=== PATIENT | male | born 1950 | race Caucasian/White ===

== ENCOUNTER 2016-07-27 08:09 | Inpatient (IN) | payer BC ==
--- NOTE | 2016-05-03 13:41 | NUR ---
PMH, allergies, meds reviewed and documented. Preop instructions given including handouts of medications to stop before surgery, shower instructions with Hibiclens soap, letter from Dr Navarro, ortho consent to read, Surgical Services pamphlet and my contact information. Encouraged to call if he has any questions. does have MS and is using a walker and muscle stimulator to assist with ambulation today. They are hoping her strength will be improved by July when the surgery is scheduled for but if not, they do have adult children who live close by and can help with care if needed.
--- NOTE | 2016-07-13 14:00 | NUR ---
JOINT REPLACEMENT PREOP CLASS PATIENT ATTENDED JOINT REPLACEMENT PREOP CLASS. CASE MANAGEMENT CONTACT INFORMATION PROVIDED. EDUCATION WAS PROVIDED REGARDING WHAT TO EXPECT BEFORE, DURING AND AFTER SURGERY. INCLUDING: OVERVIEW OF ANATOMY AND PHYSIOLOGY HOSPITAL TREATMENT SCHEDULE THERAPY DEMONSTRATION CASE MANAGEMENT RESPONSIBILITIES DISCHARGE PLANNING EQUIPMENT NEEDS JOINT REPLACEMENT WORKBOOK ANTI-COAGULATION SURGERY STRONG NUTRITIONAL PROTOCOL DISCHARGE IN[place] [facility] [place], WITH INSTRUCTIONS CJR AND PREOP SURVERY PREOP BATHING- CHG GIVEN ALL PATIENT'S QUESTIONS ANSWERED TO THEIR SATISFACTION. PATIENTS AND COACHES ENCOURAGED TO CALL WITH ANY ADDITIONAL QUESTIONS OR CONCERNS. CM FOLLOWING FOR TRANSITIONAL CARE PLANNING NEEDS DURING HOSPITALIZATION.
--- NOTE | 2016-07-19 11:00 | NUR ---
FACE TO FACE INTERVIEW WITH PATIENT. PMH, MEDS, ALLERGIES REVIEWED DOCUMENTED,
[~2016-07-27] VITALS: Ht 172.7 cm; Wt 73.2 kg
[2016-07-27] VITALS (23 sets, daily range): BP systolic 100–159; BP diastolic 58–90; PULSE 63–85; RESP 14–18; TEMP 96.2–98.1; O2SAT 92–98; Ht 172.7 cm; Wt 73.2 kg
[~2016-07-27 08:09] MED LIST: ACETAMINOPHEN 500 MG TABLET PO ONE; ASPI-730 PO; CLINDAMYCIN 900mg IVPB 50 ML IV ONE; DEXAMETHASONE 4mg/ml - 1ml INJECTION IV ONE; FAMOTIDINE 20mg IVPB 50 ML IV ONE; GLUC1CAP45 PO; LIDOCAINE 1% (10mg/ml) 2ml SDV ID ONE; LOSA50TA52 PO; LR 1,000 ML IV PRN; METOCLOPRAMIDE 10mg/2ml INJECTION IV ONE; NOZIN NASAL SWAB NS ONE; ONDANSETRON 4mg/2ml INJECTION IV ONE; TURM500C8 PO; VIT1CAPS23 PO
--- OUTSIDE RECORDS SUMMARY | 2016-07-27 08:15 | XMS REPORT ---
Author Author Ar Jon Organization [facility] Address [address] [place] [address] Care Team Providers Care Cleaning Associate Name Role Phone Ar Jon Unavailable [phone] PROBLEMS Type Condition ICD9-CM Code UOX47-AH Code Onset Dates Condition Status SNOMED Code Problem Atherosclerotic heart disease of [place] coronary artery without angina pectoris I25.10 Active 983851995065377 Problem Essential (primary) hypertension I10 Active 98122017 ALLERGIES Unknown Allergies SOCIAL HISTORY No smoking Hx information available PLAN OF CARE VITAL SIGNS MEDICATIONS Unknown Medications RESULTS No Results PROCEDURES No Known procedures IMMUNIZATIONS No Known Immunizations
--- OUTSIDE RECORDS SUMMARY | 2016-07-27 08:15 | XMS REPORT ---
Author Ar Berrios Organization [employer] Address Unknown Phone Unavailable Care Team Providers Care Build And Release Manager Name Role Phone Ar Jon CP Unavailable Allergies, Adverse Reactions, Alerts Substance Reaction Event Type ibuprophen Info Not Available Non Drug Allergy vioxx Info Not Available Non Drug Allergy novacaine Info Not Available Non Drug Allergy penicillin Info Not Available Non Drug Allergy Problems Problem Type Condition Code Onset Dates Condition Status Problem Essential (primary) hypertension I10 Active Problem Hypertension 401.9 Active Problem Atherosclerotic heart disease of [place] coronary artery without angina pectoris I25.10 Active Assessment Essential (primary) hypertension I10 Active Assessment Atherosclerotic heart disease of [place] coronary artery without angina pectoris I25.10 Active Medications Medication Code System Code Instructions Start Date End Date Status Dosage Aspirin [facility] [address]-72 325 MG Orally Daily 3 tablets Losartan Potassium [facility] 08100122486 50MG TAKE ONE TABLET BY MOUTH EVERY DAY Procedures Procedure Coding System Code Date Office Visit, Est Pt., Level 3 CPT-4 93139 Dec 03, 2015 ELECTROCARDIOGRAM, COMPLETE CPT-4 01213 Dec 03, 2015 Vital Signs Date/Time: Dec 03, 2015 BMI 24.85 Index Weight 154 lbs Height 66 in Cardiac Monitoring Heart Rate 86 /min Oximetry 98 % Blood Pressure Diastolic 80 mm Hg Blood Pressure Systolic 140 mm Hg Results No Known Results Summary Purpose [employer] Submission
--- OUTSIDE RECORDS SUMMARY | 2016-07-27 08:15 | XMS REPORT ---
Author Author Ar Jon Organization [facility] Address [address] [place] [address] Care Team Providers Care Glass Bead Maker Name Role Phone Ar Jon Unavailable [phone] PROBLEMS Type Condition ICD9-CM Code EXL38-TY Code Onset Dates Condition Status SNOMED Code Problem Encounter for preprocedural cardiovascular examination Z01.810 Active 952466881 Problem Atherosclerotic heart disease of [place] coronary artery without angina pectoris I25.10 Active 945105225956823 Problem Essential (primary) hypertension I10 Active 79130490 ALLERGIES Unknown Allergies SOCIAL HISTORY No smoking Hx information available PLAN OF CARE VITAL SIGNS MEDICATIONS Unknown Medications RESULTS No Results PROCEDURES No Known procedures IMMUNIZATIONS No Known Immunizations
[2016-07-27] MEDS ORDERED: HYDR-2601 PO (09:42)
--- NOTE | 2016-07-27 09:59 | NUR ---
CM CM ATTEMPTED VISIT. PT IS AT PROCEDURE. NO FAMILY PRESENT IN THE ROOM. CM CONTACT INFORMATION IS LEFT AT THE BEDSIDE.
[2016-07-27 10:03] LABS: ALBUMIN 4.4 G/DL (3.5-5.0); ALBUMIN/GLOBULIN RATIO 1.4 RATIO (1.1-2.2); ALKALINE PHOSPHATASE 71 U/L (38-126); ALT (SGPT) 41 U/L (21-72); ANION GAP 12 MEQ/L (5-15); AST (SGOT) 28 U/L (17-59); BUN/CREATININE RATIO 33 RATIO (6-26); CALCIUM 9.3 MG/DL (8.4-10.2); CHLORIDE 105 MEQ/L (98-107); CO2 - CARBON DIOXIDE 28 MEQ/L (22-30); CREATININE 0.7 MG/DL (0.8-1.5); GLOMERULAR FILTRATION RATE 114; GLUCOSE 104 MG/DL (75-110); POTASSIUM 4.5 MEQ/L (3.6-5); SODIUM 145 MEQ/L (134-144); TOTAL PROTEIN 7.6 G/DL (6.3-8.2)
--- NOTE | 2016-07-27 12:12 | PDHPBRIEF ---
History and Physical Update Date DATE: 07/27/16 TIME: 12:11 I evaluated this patient and found no changes in the history and clinical exam findings. The recommendations and treatment plan is also unchanged from the previous documentation. CHARLEY MICHELLE July 27, 2016 12:11
--- NOTE | 2016-07-27 12:41 | ANESPREOP ---
Anesthesia Record Date and Time DATE: 07/27/16 TIME: 12:34 Pre-Op Diagnosis severe deg OA Left knee Proposed Surgical Procedure LT TKA Allergies: Coded Allergies: Penicillins (Verified Allergy, Unknown, HIVES, 07/26/16) ibuprofen (Verified Allergy, Unknown, CHF, 07/26/16) procaine (Verified Allergy, Unknown, HIVES, 07/26/16) rofecoxib (Verified Allergy, Unknown, CHF, 07/26/16) Ht/Wt/BMI Height: 5 ' 8.00 " Weight: 70.000 kg BMI: 23.5 kg/m2 Vital Signs Date Time Temp Pulse Resp B/P Pulse Ox O2 Delivery O2 Flow Rate FiO2 07/27/16 09:47 80 18 07/27/16 09:37 98.1 159/90 97 Room Air Medications Inpatient Medications Current Medications Medications (Trade) Dose Ordered Sig/Kenneth Start Time Stop Time Status Last Admin Dose Admin Lactated Ringer's (Lactated Ringers) 1,000 ml @ 50 mls/hr Q20H PRN 07/27/16 07:00 07/27/16 11:49 50 MLS/HR Aspirin (Aspirin) 325 Mg Tablet, 3 TAB PO HS, (Reported) Last Taken: on 07/18/16 Gluc Karimi/Chondroitin Sulfate A (Glucosamine Chondroitin Cap) 1 Cap Capsule, 2 CAP PO HS, (Reported) Last Taken: on 07/18/16 Hydrocodone/Acetaminophen (Hydrocodon-Acetaminoph 7.5-300) 7.5-300 Tablet, 1 TAB PO QHS, (Reported) Last Taken: on 07/26/16 2200 Losartan Potassium (Losartan Potassium) 50 Mg Tablet, 50 MG PO HS, (Reported) Last Taken: on 07/26/16 2200 Turmeric Root Extract (Turmeric) Unknown Strength Capsule, Unknown Dose PO DAILY, (Reported) Last Taken: on 07/18/16 Vit C/Farias & Celery Ex/Grp E (Tart Farias Capsule ) Unknown Strength Capsule, Unknown Dose PO DAILY, (Reported) Last Taken: on 07/18/16 Currently on Beta Sheng: No Medical/Surgical History Anesthesia PMH: Reports: *Angina (2002- None since), *Hypertension, Anesthesia Reactions (DIFFICULT WAKING UP; NO KNOWN AIRWAY ISSUES), Arthritis, CHF, Denies : *Diabetes, *Dyspnea, *CO, Asthma, COPD, CVA/Stroke/TIA, Cancer, Clotting Problems, Deep Vein Thrombosis, Glaucoma, Hepatitis, Hiatal Hernia, Malignant Hyperthermia, Pneumonia, Reflux, Renal Disease, Seizures, Sleep Apnea, Thyroid Disease, Tuberculosis Smoking Status: Never smoker Has pt. smoked today?: No Use Chewing Tobacco?: No Second Hand Exposure: No Substance Use Type: does not use Alcohol Intake: a few times a month Past Surgical History Orthopedic Surgeries: Yes - SAFIA ARTHROSCOPY KNEES Abdominal Surgeries: No Genitourinary Surgeries: No Cardiac Surgeries: No Endocrine Surgeries: No Reproductive Surgeries: No Neurological Surgeries: No Ear Surgeries: No Nose Surgeries: No Throat Surgeries: No Other Surgeries: Yes - COLONOSCOPY Anesthesia Adverse Reactions: FOUND none Family Hx of Anesthesia Advers: none Hx of Motion Sickness: No Pertinent Findings Laboratory Tests 07/27/16 09:31 EKG Rhythm: Sinus Rhythm Physical Exam Respiratory: Bilat breath sounds equal, Lungs clear Cardiovascular: FOUND Regular rate, rhythm, FOUND No murmur Airway Assessment Mallampati Score: I TMD: 3 Fingerbreadths Neck Extension: Good Overall Assessment: No Airway Concerns ASA: 2 Discussion Discussed risks/options/alternatives of anesthesia and questions answered. Patient consents. Nursing pain assessment noted. Present: Spouse Attestation Statement Prior to the delivery of any anesthetic medication, I examined the patient, developed the plan, obtained the patient's consent and discussed the risk and benefits of the procedure with the patient/guardian. SHIMON HORN CRNA July 27, 2016 12:38
[2016-07-27] MEDS ORDERED: TRANEXAMIC ACID 1,000 MG in NORMAL SALINE 100 ML IV ONE ×2 (12:45→13:45)
[2016-07-27] MEDS ORDERED: VANCOMYCIN 1 GRAM INJECTION ONE (12:51)
[2016-07-27] MEDS ORDERED: MIDAZOLAM 2mg/2ml INJECTION ONE (12:57)
[2016-07-27] MEDS ORDERED: FENTANYL 100mcg/2ml INJECTION ONE (12:57)
[2016-07-27] MEDS ORDERED: PROPOFOL 500mg 50 ML IV ONE (13:09)
[2016-07-27] MEDS ORDERED: KETAMINE 500mg/10ml INJECTION ONE (13:10)
[2016-07-27] MEDS ORDERED: EPINEPHRINE 0.25 MG, BUPIVACAINE 0.25% 75 MG, MORPHINE SULFATE 15 MG in NORMAL SALINE 3... INJ ONE (13:45)
--- NOTE | 2016-07-27 14:33 | PDOPERATE ---
Operative Report Date of Operation 07/27/16 Side: Left Preoperative Diagnosis: knee primary DJD Postoperative Diagnosis Same as preoperative diagnosis. Operation/Procedure: total knee arthroplasty (left) Surgeon Zelda Navarro MD Preparation Room Manager CECILIO Albarado Complications None. Regional Block: Spinal Estimated Blood Loss See Anesthesia Record. Fluids Please See Anesthesia Record. Description of Operation Mr. Delgado and his left knee were identified and marked in the the preoperative holding area. He was then brought back to the operating suite and proper anesthesia was administered. He was then positioned supine on the operating table. The left lower extremity was then prepped and draped in my normal sterile fashion. Timeout was performed with all operating room personnel. The leg was exsanguinated and tourniquet inflated 250 mmHg. A standard anterior incision followed by a medial parapatellar approach was utilized. He had a large 2+ effusion. It appearance of PVNS to the synovium. The vast majority of his arthritis was then the medial compartment. A distal femoral cut was made in 5 of valgus using intramedullary guide. The femur was sized at a 5 and rotation set using the epicondylar axis. Distal femoral cuts were performed. A proximal tibial cut was made using extramedullary guide. Remaining osteophytes and meniscus were removed. Gaps were checked and they were well balanced and rectangular. Trial components were placed with a 9 mm spacer. This allowed for full range of motion and the patella tracked well. The knee was stable throughout range of motion. The patella was resurfaced with the knee in extension to a size 35. The tibia rotation was then marked and the tibia stamped at the proper rotation at a size 5. The bone was prepared for cementing and all components cemented into place and allowed to cure in extension. Betadine solution was used for 3 minutes during the curing period and then fully irrigated out with 1 L of normal saline. The tourniquet was deflated and hemostasis obtained with electrocautery. After the cement had cured the knee was taken through range of motion check for balance and stability which were good. Vancomycin powder was placed into the wound. The arthrotomy was closed with #1 Vicryl. The remainder of the wound was then closed by my assistant cook utilizing 2-0 vycral in the subcutaneous tissue. 4-0 monocryl was used in the subcuticular layer followed by dermabond and a sterile dressing. After closure the patient will be transferred to the recovery room under the care of anesthesia. DEIDRE NAVARRO MD July 27, 2016 14:33
[2016-07-27] MEDS ORDERED: ROPIVACAINE 0.5% (5mg/ml) 30ml INJ ONE (14:52)
[2016-07-27] MEDS ORDERED: LORAZEPAM 1 MG TABLET PO PRN (15:00)
[2016-07-27] MEDS ORDERED: SENNOSIDES 8.6 MG TABLET PO PRN (15:00)
[2016-07-27] MEDS ORDERED: NOZIN NASAL SWAB NS ONE (15:00)
[2016-07-27] MEDS ORDERED: DiphenhydrAMINE 50 MG/ML INJECTION IV PRN (15:00)
[2016-07-27] MEDS ORDERED: DiphenhydrAMINE 25 MG CAPSULE PO PRN (15:00)
[2016-07-27] MEDS ORDERED: PRN ORDERS MC (15:00)
--- NOTE | 2016-07-27 15:06 | ANESPO ---
Post-Op Note Date 07/27/16 Time: 15:05 Status Pt Participated in Evaluation: Pt participated in person Vital Signs Date Time Temp Pulse Resp B/P Pulse Ox O2 Delivery O2 Flow Rate FiO2 07/27/16 09:47 80 18 07/27/16 09:37 98.1 159/90 97 Room Air Respiratory Function: Airway patent, Regular respirations Cardiovascular Function: Regular pulse Telemetry Pattern: SR Mental Status: Alert/oriented Pain Level Intensity: 0 Unable to Assess Pain Due To: pre-op order Hydration: IV infusing Complications during Recovery None apparent Follow-Up Instructions Instructions Per Surgeon SHIMON HORN CRNA July 27, 2016 15:06
--- NOTE | 2016-07-27 15:07 | ANESPD ---
Peripheral Nerve Blockade Physician: Dk Navarro MD Date: 07/27/16 Surgical Procedure: TKA Discussion Discussed risks/options/alternatives of anesthesia and questions answered. Patient consents. Nursing pain assessment noted. Block Start: 14:59 Block Stop: 15:03 Block Employed: Adductor Canal Indication: post-operative pain Approach: left side confirmed Position: supine Patient: Consent, risks/benefits discussed, Informed, post block act. discussed Monitors: EKG, SpO2, NIBP IV Sedation: No Sedation: Awake Initial Vital Signs First Documented Vital Signs Date Time Temp Pulse Resp B/P Pulse Ox O2 Delivery O2 Flow Rate FiO2 07/27/16 09:37 98.1 63 14 159/90 97 Room Air Post Vital Signs Vital Signs Date Time Temp Pulse Resp B/P Pulse Ox O2 Delivery O2 Flow Rate FiO2 07/27/16 09:47 80 18 07/27/16 09:37 98.1 159/90 97 Room Air Initial Pain Score: 0 Post Block Score: 0 Prep: chlorhexadine/ETOH Ultrasound Used?: Yes Nerve Simulator Muscle Response: No Parathesia/Pain: none Injectate Ropivacaine (%): 0.5 Ropivacaine (mL): 15 Injection Injection made incrementally with constant monitoring and aspiration every [5] ml. SHIMON HORN CRNA July 27, 2016 15:07
--- NOTE | 2016-07-27 15:19 | DI ---
Indication: ITS.REASON: POSTOP left knee replacement PROCEDURE: KNEE LEFT 2 VIEW: Encounter: Initial Comparison: None Findings: Postoperative changes of left total knee replacement are seen. There is expected postoperative subcutaneous gas. No evidence of hardware failure or acute fracture. No retained radiopaque surgical instruments or sponges. Overlying material causing artifact. Impression: New left total knee prosthesis without evidence of immediate complication. .
--- NOTE | 2016-07-27 15:27 | NUR ---
Admit Pt transferred from cart to bed via slide board. VS stable on RA. Pt denies pain and nausea at this time. A&OX3. present at time of transfer. Side rails up X2, call light w/in reach, bed alarm on. Mepilex dressing to the left knee, c/d/i.
[2016-07-27] MEDS: NORMAL SALINE 1,000 ML IV SCH (15:40)
[2016-07-27] MEDS: CLINDAMYCIN 900mg IVPB 50 ML IV SCH ×2 (16:49→21:54)
[2016-07-27] MEDS: ACETAMINOPHEN 325 MG TABLET PO SCH ×2 (16:49→21:50)
[2016-07-27] MEDS: OXYCODONE I.R. 5 MG TABLET PO PRN ×2 (18:05→21:55)
--- NOTE | 2016-07-27 18:42 | NUR ---
Summary Pt A&OX3. Pt denies nausea. Pt rated pain a 2/10, given 2 PRN oxicodone at that time per Pts request. VS stable on RA. Pt stood at bedside with therapy. Mepilex dressing and polar pack in place to the left knee. Pt instructed to use incentive spirometer. Side rails up X2, call light w/in reach, bed alarm on.
[2016-07-27] MEDS: ASPIRIN *EC* 325mg TABLET PO SCH (21:51)
[2016-07-27] MEDS: NOZIN NASAL SWAB NS SCH (21:51)
[2016-07-27] MEDS ORDERED: LOSARTAN 50 MG TABLET PO SCH (22:00)
[2016-07-27] MEDS ORDERED: SENNOSIDES 8.6 MG TABLET PO SCH (22:00)
[2016-07-28] MEDS: OXYCODONE I.R. 5 MG TABLET PO PRN ×3 (02:29→13:34)
[2016-07-28 04:02] VITALS: BP 137/74; PULSE 80; RESP 18; TEMP 97.7; O2SAT 98
--- NOTE | 2016-07-28 04:15 | NUR ---
SHIFT SUMMARY PT ALERT AND ORIENTED X3, VITAL SIGNS ARE STABLE ON ROOM AIR. DENIES C/P,N/V AND SOA. PT HAS AMBULATED ONCE ON THIS SHIFT, TO AND FROM THE BATHROOM. PT HAS HAD ADEQUATE URINE OUTPUT STATING THAT HE NORMALLY DOESN'T URINATE VERY FREQUENTLY DURING THE DAY. WILL CONTINUE TO MONITOR.
[2016-07-28] MEDS: NORMAL SALINE 1,000 ML IV SCH ×2 (04:36→16:42)
[2016-07-28] MEDS: NOZIN NASAL SWAB NS SCH ×2 (04:37→14:22)
[2016-07-28] MEDS: CLINDAMYCIN 900mg IVPB 50 ML IV SCH (04:37)
[2016-07-28 04:47] LABS: HCT - HEMATOCRIT 35.3 % (41-53); HGB - HEMOGLOBIN 12.3 GM/DL (13.5-17.5); MEAN CORPUSCULAR HGB 30.8 UUG (26-34); MEAN CORPUSCULAR HGB CONC(MCHC 34.8 GM/DL (31-37); MEAN CORPUSCULAR VOLUME 88.3 UM3 (80-100); MEAN PLATELET VOLUME 10.1 UM3 (9.4-12.4); WBC - WHITE BLOOD COUNT 12.2 T/MM3 (4.5-11.0)
[2016-07-28 04:55] LABS: ANION GAP 9 MEQ/L (5-15); BUN/CREATININE RATIO 35 RATIO (6-26); CALCIUM 8.4 MG/DL (8.4-10.2); CHLORIDE 102 MEQ/L (98-107); CO2 - CARBON DIOXIDE 27 MEQ/L (22-30); CREATININE 0.6 MG/DL (0.8-1.5); GLOMERULAR FILTRATION RATE 136; GLUCOSE 157 MG/DL (75-110); POTASSIUM 4.7 MEQ/L (3.6-5); SODIUM 138 MEQ/L (134-144)
[2016-07-28 07:53] VITALS: BP 114/66; PULSE 84; RESP 16; TEMP 95.9; O2SAT 100
--- NOTE | 2016-07-28 08:16 | PDORTHOPN ---
Subjective Date DATE: 07/28/16 TIME: 08:13 Subjective Domingo is doing well this am No specific complaints. Expects to go home today. Pain is well controlled. Objective Vital Signs Vital signs Vital Signs 07/27/16 07/27/16 07/28/16 07/28/16 21:30 23:29 04:02 07:53 Temp 96.4 97.7 95.9 Pulse 84 75 80 84 Resp B/P 132/83 137/74 114/66 Pulse Ox 98 98 100 O2 Delivery Room Air Room Air Room Air Height (Feet): 5 Height (Inches): 8.00 Weight (Kilograms): 70.000 General General Appearance: No Acute Distress Respiratory (Brief) Respiratory Brief: FOUND: non-labored Cardiovascular (Brief) Cardiac: FOUND: calf easily compressible, calf soft, nontender, pedal pulses intact Surgical Site Incision: FOUND: Mepilex dressing intact, no drainage Neurologic (Brief) Neurological Brief: FOUND: extremities w/o deficits, neuro intact Psychiatric (Brief) Psychiatric Brief: FOUND: alert, no acute distress Laboratory Laboratory Laboratory Tests 07/28/16 04:02 Laboratory Tests 07/27/16 09:31 07/28/16 04:02 Assessment & Plan Problems: (1) Degenerative arthritis of left knee Status: Chronic Qualifiers: Osteoarthritis type: primary Qualified Codes: M17.12 - Unilateral primary osteoarthritis, left knee Assessment & Plan: Current anti-coagulation protocol for VTE prophylaxis. SCD's and early mobilization for added DVT coverage. WBC elevation is likely a stress response. Pt is afebrile and has no S/SX of infection. PT/OT services to improve independent function. Discharge Planning per Case Management. Hospital Course Summary Disclaimer The visit summary below is not to be considered part of the above Progress Note. CHARLEY MICHELLE July 28, 2016 08:16
[2016-07-28] MEDS: ASPIRIN *EC* 325mg TABLET PO SCH (08:22)
[2016-07-28] MEDS: ACETAMINOPHEN 325 MG TABLET PO SCH ×3 (08:23→17:55)
[2016-07-28] MEDS ORDERED: ASPI-917 PO (08:24)
[2016-07-28] MEDS ORDERED: OXYC5TAB84 PO (08:24)
[2016-07-28] MEDS ORDERED: ACET-2321 PO (08:24)
[2016-07-28] MEDS ORDERED: POLY17PO6 PO (08:24)
[2016-07-28 08:30] VITALS: PULSE 84; RESP 16
--- NOTE | 2016-07-28 08:33 | NUR ---
CM CM IN TO VISIT WITH PT. HE IS ALERT AND ORIENTED. HE PLANS TO RETURN HOME. HE WILL DO OUTPT PT AT [facility] IN [place]. HE HAS FWW. HE IS GIVEN CM CONTACT INFORMATION. SHAWANDAE SCORE IS 6. Addendum: 07/28/16 at 0833 by JOSE ELIZABETH RN Amended: Links added.
[2016-07-28] MEDS ORDERED: DOCUSATE SODIUM 100 MG CAPSULE PO SCH (09:00)
[2016-07-28] MEDS ORDERED: POLYETHYL.GLYCOL 3350 PACKET 17gm PO SCH (09:00)
[2016-07-28] MEDS: ONDANSETRON 4mg/2ml INJECTION IV PRN ×2 (09:03→16:30)
--- NOTE | 2016-07-28 09:08 | NUR ---
EMESIS PT STATED HE WAS FEELING "WOOZY". WHILE ROUNDING, THIS RN WAS CALLED INTO ROOM. PT HAS TRASH CAN IN ARMS. BLUE EMESIS BAG GIVEN TO PT. AT THIS TIME, PT VOMITED 600 CC. PRN ZOFRAN GIVEN DOCUMENTED. WILL CONTINUE TO MONITOR.
[2016-07-28 12:10] VITALS: BP 139/66; PULSE 80; RESP 14; TEMP 96.3; O2SAT 95
--- NOTE | 2016-07-28 13:15 | DSPDOC ---
General Date Date DATE: 07/28/16 TIME: 13:13 Attending Physician Dk Navarro MD Admitting Physician Dk Navarro MD Consulting Physician Admitting Diagnosis PRIMARY DEGENERATIVE JOINT DISEASE LEFT KNEE Discharge Diagnosis Primary DJD left knee Procedures Left total knee arthroplasty History of Present Illness HPI Elements This patient was admitted for elective surgical tx of end stage degenerative joint disease that failed to respond to conservative treatment. Further details of this is found in the admission H&P. Hospital Course After appropriate preoperative clearance and signing of operative consent, the patient was given IV antibiotics, according to orthopedic protocol. The patient was taken to the operating room and underwent elective left total knee arthroplasty. Following surgery, antibiotics were discontinued less than 24 hours according to joint protocol. Aspirin was initiated and SCDs added for DVT prevention. The dressing was clean, dry, and intact. Pain control was obtained via multimodal approach. Bowel motivation addressed with scheduled and PRN medications. Early mobilization was initiated through PT services. Discharge arrangements made by a collaborative effort between the patient and Case Management. Follow-up is scheduled in 2-3 weeks. Discharge instructions given by orthopedic providers and nursing staff at discharge. Discharge condition was good. Problems: (1) Degenerative arthritis of left knee Status: Chronic Assessment & Plan: Current anti-coagulation protocol for VTE prophylaxis. SCD's and early mobilization for added DVT coverage. WBC elevation is likely a stress response. Pt is afebrile and has no S/SX of infection. PT/OT services to improve independent function. Discharge Planning per Case Management. Ongoing Care Required?: No Laboratory Laboratory Tests Test 07/28/16 04:02 White Blood Count 12.2T/MM3 Red Blood Count 4.00M/MM3 Hemoglobin 12.3GM/DL Hematocrit 35.3% Mean Corpuscular Volume 88.3UM3 Mean Corpuscular Hemoglobin 30.8UUG Mean Corpuscular Hemoglobin Concent 34.8GM/DL RDW Standard Deviation 40.0FL Platelet Count 204T/MM3 Mean Platelet Volume 10.1UM3 Turbidity < 20 Sodium Level 138MEQ/L Potassium Level 4.7MEQ/L Chloride Level 102MEQ/L Carbon Dioxide Level 27MEQ/L Anion Gap 9MEQ/L Blood Urea Nitrogen 21.0MG/DL Creatinine 0.6MG/DL Glomerular Filtration Rate Calc 136 BUN/Creatinine Ratio 35RATIO Glucose Level 157MG/DL Calculated Osmolality 272MOSM/KG Calcium Level 8.4MG/DL Icterus Index < 2 Chemistry Specimen Hemolysis < 15 Home Meds Active Scripts Polyethylene Glycol 3350 (Miralax) 17 Gm Powd.pack, 17 G PO DAILY Y for CONSTIPATION, #1 BOTTLE Take 17 Grams (1 capful), by mouth, once a day. Prov:CHARLEY MICHELLE 07/28/16 Oxycodone HCl (Oxycodone HCl) 5 Mg Tablet, 5-15 MG PO Q3H Y for BREAKTHROUGH PAIN, #60 TAB Prov:CHARLEY MICHELLE 07/28/16 Aspirin *EC* (Aspirin EC) 325 Mg Tablet.dr, 325 MG PO BID, #84 TAB Take Aspirin 325mg Twice a day for 6 weeks. This is for blood clot prevention. Prov:CHARLEY MICHELLE 07/28/16 Acetaminophen (Tylenol) 325 Mg Tablet, 650 MG PO QID, #60 TAB Prov:CHARLEY MICHELLE 07/28/16 Reported Medications Hydrocodone/Acetaminophen (Hydrocodon-Acetaminoph 7.5-300) 7.5-300 Tablet, 1 TAB PO QHS, TAB 07/27/16 Turmeric Root Extract (Turmeric) Unknown Strength Capsule, PO DAILY 07/19/16 Vit C/Farias & Celery Ex/Grp E (Tart Farias Capsule) Unknown Strength Capsule, PO DAILY 07/19/16 Losartan Potassium (Losartan Potassium) 50 Mg Tablet, 50 MG PO HS 03/01/13 Gluc Karimi/Chondroitin Sulfate A (Glucosamine Chondroitin Cap) 1 Cap Capsule, 2 CAP PO HS 03/01/13 Aspirin (Aspirin) 325 Mg Tablet, 3 TAB PO HS 03/01/13 Discharge Disposition HOME Estimated Blood Loss 50.0 CHARLEY MICHELLE July 28, 2016 13:15
[2016-07-28 16:15] VITALS: BP 151/83; PULSE 92; RESP 16; TEMP 97.7; O2SAT 97
--- NOTE | 2016-07-28 19:10 | NUR ---
DISCHARGE SUMMARY PT ALERT AND ORIENTED X3,VITAL SIGNS ARE STABLE ON ROOM AIR. PT DENIES C/P,N/V AND SOA. PT DENIES PAIN AT THIS TIME WELL. SON WAS GIVEN PRESCRIPTIONS EARLIER IN THE EVENING TO GET THE MEDICATIONS FILLED. PT BELONGINGS GATHERED. IV DC'D BY PARVIZ CLAYTON. THIS RN DISCUSSED: FOLLOW-UP APPOINTMENTS, DIET,EXERCISE,DRIVING,MEDICATIONS TO CONTINUE AND TO START, SIGNS AND SYMPTOMS TO REPORT. PT TAKEN BY WHEELCHAIR TO FRONT ENTRANCE WHERE SPOUSE WAS WAITING. ASSISTED INTO VEHICLE WITH A STANDBY ASSIST.
[2016-07-29] MEDS ORDERED: MILK OF MAGNESIA 30 ML SUSP PO SCH (08:00)
--- NOTE | 2016-07-29 11:51 | NUR ---
ATTEMPTED POST HOSPITAL FOLLOW UP PHONE CALL #1, NO ANSWER, LEFT VOICE MESSAGE TO CALL CM.
--- NOTE | 2016-07-29 12:51 | NUR ---
CALLED PATIENT FOR FOLLOW UP PHONE CALL AND ASKED THE FOLLOWING QUESTIONS FOR DR GARCIA. 1. PAIN AT REST: 3 2. PAIN WITH EXERTION: 5 3. ANTICOAGULATION: ASA 325MG BID 4. PAIN MED: TYLENOL 650MG QID AND OXY 5. BM: NO, BUT PASSING GAS AND HAS BEEN TAKING MIRALAX.
[2016-07-29] MEDS ORDERED: BISACODYL 10 MG SUPPOSITORY RECTALLY SCH (20:00)
== END 2016-07-28 19:10 | disposition home or self-care (01) | DRG 470 ==
LOC: SRG 08:09
PROVIDERS: ADMIT Orthopaedic Surgery; ATTEND Orthopaedic Surgery
PROC: 0SRD0J9 Replacement of Left Knee Joint with Synthetic Substitute, Cemented, Open Approach (ICD-10-PCS; principal; 2016-07-27 13:34)
DX: M17.0 Bilateral primary osteoarthritis of knee (principal); I10 Essential (primary) hypertension; Z79.82 Long term (current) use of aspirin
CPT/HCPCS: 36415; 80048; 80053; 85027

== ENCOUNTER 2016-10-14 05:34 | Inpatient (IN) ==
[2016-10-14] MEDS ORDERED: ACETAMINOPHEN 500 MG TABLET PO ONE (06:00)
[2016-10-14] MEDS ORDERED: DEXAMETHASONE 4 MG/ML INJECTION IVP ONE (06:00)
[2016-10-14] MEDS ORDERED: FAMOTIDINE PB 20 MG/50 ML BAG IV ONE (06:00)
[2016-10-14] MEDS ORDERED: METOCLOPRAMIDE 10mg/2ml INJECTION IVP ONE (06:00)
[2016-10-14] MEDS ORDERED: CLINDAMYCIN PB 900 MG/50 ML BAG IV ONE (06:00)
[2016-10-14] MEDS ORDERED: LIDOCAINE 1% (10mg/ml) 10mL MDV SQ ONE (06:00)
[2016-10-14] MEDS ORDERED: ONDANSETRON 4 MG/2 ML INJECTION IVP ONE (06:00)
[2016-10-14] MEDS ORDERED: NOZIN NASAL SWAB NAS ONE ×2 (06:00→07:13)
[2016-10-14] MEDS ORDERED: TRANEXAMIC ACID 1,000 MG in NS 100 ML IV ONE ×2 (06:00→07:00)
[2016-10-14] MEDS ORDERED: LIDOCAINE 1% (10mg/ml) 2mL INJ PF SDV ID ONE (06:32)
[2016-10-14] MEDS: LR 1,000 ML IV SCH ×2 (06:34→08:15)
[2016-10-14] MEDS ORDERED: VANCOMYCIN 1,000 MG INJECTION ONE (06:39)
--- NOTE | 2016-10-14 07:06 | History & Physical Update ---
- History and Physical Update Date: 10/14/16 Update: I evaluated this patient and found no changes in the history and clinical exam findings. The treatment plan and recommendations are also unchanged from the previous documentation.
[2016-10-14] MEDS ORDERED: DiphenhydrAMINE 25 MG CAPSULE PO PRN (07:13)
[2016-10-14] MEDS ORDERED: POLYETHYL GLYCOL 3350 17gm PACKET PO PRN (07:13)
[2016-10-14] MEDS ORDERED: NAPROXEN 220 MG TABLET PO PRN (07:13)
[2016-10-14] MEDS ORDERED: DiphenhydrAMINE 50 MG/ML INJECTION IVP PRN (07:13)
[2016-10-14] MEDS ORDERED: LORazepam 1 MG TABLET PO PRN (07:13)
[2016-10-14] MEDS ORDERED: TRAMADOL 50 MG TABLET PO PRN (07:13)
[2016-10-14] MEDS ORDERED: ONDANSETRON 4 MG/2 ML INJECTION IVP PRN (07:13)
[2016-10-14] MEDS ORDERED: MIDAZOLAM 2mg/2ml INJECTION ONE (07:25)
[2016-10-14] MEDS ORDERED: PROPOFOL 500 MG/50 ML VIAL IV ONE (07:41)
[2016-10-14] MEDS ORDERED: EPINEPHrine 0.25 MG, BUPIVACAINE 0.25% PF 30 ML, MORPHINE SULFATE 15 MG, KETOROLAC INJ ... OPSITE ONE (08:00)
[2016-10-14] MEDS ORDERED: PHENYLEPHRINE INJ 10 MG/ML VIAL IV ONE (08:09)
[2016-10-14] MEDS ORDERED: EPHEDRINE 50mg/ml INJECTION ONE (08:11)
[2016-10-14] MEDS ORDERED: MORPHINE SULFATE 10 MG/ML VIAL ONE (08:14)
--- NOTE | 2016-10-14 08:48 | Anesthesia Preoperative Report ---
Anesthesia Preoperative Record - Date and Time Date: 10/14/16 Preoperative Diagnosis: M17.111 Rt TKA Proposed Procedure: right total knee NPO Since Date: 10/13/16 NPO Since Time: 23:00 Allergies/Adverse Reactions: Allergies Allergy/AdvReac Type Severity Reaction Status Date / Time ibuprofen Allergy Unknown CHF Verified 09/08/16 11:55 Penicillins Allergy Unknown HIVES Verified 09/08/16 11:55 procaine Allergy Unknown HIVES Verified 09/08/16 11:55 rofecoxib Allergy Unknown CHF Verified 09/08/16 11:55 oxycodone AdvReac Unknown GI distress Verified 10/04/16 13:55 - Vital Signs Vital Signs: Temperature 98.0 F 10/14/16 05:48 Pulse Rate 75 10/14/16 06:14 Respiratory Rate 15 10/14/16 05:48 Blood Pressure 155/92 H 10/14/16 05:48 Pulse Oximetry 97 10/14/16 05:48 Oxygen Delivery Method Room Air Height and Weight: Height 5 ft 9 in Weight 71.8 kg Body Mass Index 23.3 - Medications Inpatient Medications: Current Medications Acetaminophen (Tylenol) 650 mg PO QID [facility] Aspirin (Ecotrin) 325 mg PO BID [facility] Bisacodyl (Dulcolax) 10 mg RECTALLY DAILY SHILA Stop: 10/16/16 20:01 Diphenhydramine HCl (Benadryl) 25 mg PO Q6H PRN PRN Reason: Itching Diphenhydramine HCl (Benadryl) 25 mg IVP Q6HR PRN PRN Reason: Itching Docusate Sodium (Colace) 100 mg PO BID [facility] Sodium Chloride (Normal Saline) 1,000 mls @ 80 mls/hr IV .[id number] [facility] Clindamycin Phosphate (Cleocin Premix) 900 mg in 50 mls @ 100 mls/hr IV Q6H [facility] Stop: 10/15/16 01:29 Isopropyl Alcohol (Nozin Nasal Swab) 1 each [place] 0600,1400,2200 [facility]ILA Isopropyl Alcohol (Nozin Nasal Swab) 1 each [place] POSTOP ONE Stop: 10/14/16 07:14 Lorazepam (Ativan) 1 mg PO HS PRN PRN Reason: Sleep Losartan Potassium (Cozaar) 50 mg PO HS [facility] Magnesium Hydroxide (Mom) 30 ml PO DAILY [facility] Stop: 10/16/16 08:01 Naproxen (Aleve) 440 mg PO BID PRN PRN Reason: Pain Ondansetron HCl (Zofran) 4 mg IVP Q4H PRN PRN Reason: Nausea &/or vomiting Polyethylene Glycol (Miralax) 17 gm PO DAILY PRN PRN Reason: CON Senna (Senna Lax) 17.2 mg PO HS [facility]ILA Senna (Senna Lax) 17.2 mg PO DAILY PRN PRN Reason: Constipation Tramadol HCl (Ultram) 50 - 100 mg PO Q6H PRN PRN Reason: Pain Home Medications: Home Medications Medication Instructions Recorded Confirmed Type Losartan Potassium 50 mg PO HS #0 03/01/13 10/14/16 History glucosamine sulfate 500 mg tablet 500 mg PO BID 08/10/16 10/14/16 History Acetaminophen [Tylenol] 650 mg PO QID PRN 09/08/16 10/14/16 History Aspirin [Aspirin EC] 325 mg PO HS 09/08/16 10/13/16 History Sour Farias Extract [Tart Farias 1,000 mg PO DAILY 09/08/16 10/14/16 History Extract] Turmeric Root Extract [Turmeric] 500 mg PO DAILY 09/08/16 10/14/16 History Is Patient on Beta Sheng?: No - Medical History Respiratory: DENIES: Asthma, Sleep Apnea Cardiovascular: Reports: Hypertension DENIES: Abnormal EKG, Angina, Coronary Artery Disease, Heart Murmur Gastrointestional: DENIES: Gastroesophageal Reflux Disease Other History: DENIES: Anesthesia Reactions - Surgical History GI Surgery/Treatments: Reports: Colonoscopy Musculoskeletal Surgery/Tx: Reports: Knee Arthroscopy (bilateral), Total Knee Replacement (left TKA ) Anesthesia Reactions: None Hx Family Anesthesia Reaction: No History of Motion Sickness: No - Social History Smoking Status: Never smoker Hx Chewing Tobacco Use: No Second Hand Exposure: No Substance Use Type: does not use - Pertinent Findings Laboratory: CBC and BMP 10/14/16 06:01 BMP 10/14/16 06:01 Sodium 144 Potassium 4.0 Chloride 107 Carbon Dioxide 28 BUN 20.0 Creatinine 0.9 Glucose 89 Calcium 9.0 EKG Rhythm: Normal Sinus Rhythm - Physical Exam Respiratory Exam: Present: lungs clear Cardiovascular Exam: Present: regular rate and rhythm - Airway Assessment Mallampati Score: II TMD: 3 Fingerbreadths Neck Extension: good Overall Assessment: may be difficult mask vent (morrison) - ASA ASA Score: 2 - Plan Anesthesia: General TIVA Regional/Trunk Block: Spinal - Discussion Discussion: Discussed risks/options/alternatives of anesthesia and questions answered. Patient consents. Nursing pain assessment noted. Present for Discussion: spouse Attestation Statement: Prior to the delivery of any anesthetic medication, I examined the patient, developed the plan, obtained the patient's consent and discussed the risk and benefits of the procedure with the patient/guardian. - Additional Information Seen by Anesthesia: Yes
--- NOTE | 2016-10-14 09:04 | Operative Note ---
- Procedure Date of Admission: 10/14/16 Side: right Preoperative Diagnosis: knee primary DJD Postoperative Diagnosis: Same as preoperative diagnosis. Operation: total knee arthroplasty Surgeon: Zelda Navarro MD Brimmer Blocker: Carlos Timmons Complications: None. Regional/Trunk Block: Spinal Peripheral Nerve Block: Saphenous-Right Estimated Blood Loss: See Anesthesia Record. Fluids: Please see Anesthesia Record. Description of Procedure: Mr. Delgado and the right knee were identified and marked in the preoperative holding area. He was brought back to the operating suite and placed supine on the operating table. Spinal anesthetic was administered. The operative lower extremity was prepped and draped in a sterile fashion. Timeout was performed. He had a fixed varus deformity. An anterior midline incision followed by medial parapatellar arthrotomy was performed. The tourniquet was not used until cementing. Hemostasis was obtained with electrocautery. The patella was resurfaced to a size 35. A distal femoral osteotomy was then performed in 5 of valgus using intramedullary guide. The femur was sized at a for and rotation set using the epicondylar axis. Distal femoral cuts were performed with a 4-in- 1 cutting block. A proximal tibial cut was then made perpendicular to its long axis using an extramedullary guide. At this point remaining meniscus and osteophytes were removed and joint cocktail was injected throughout soft tissue. Trial components were placed with a 9 mm spacer. This allowed for full extension and flexion and the patella tracked well. The leg was then exsanguinated and the tourniquet inflated to 250 mmHg. The tibia was then stamped at a size 4 at the proper rotation. The bone was then prepared for cementing and [place] [employer] components were cemented into place and allowed to cure in extension. The tourniquet was then let down and hemostasis obtained with electrocautery. Betadine solution was used during the curing period for 3 minutes. 1 g of vancomycin powder was placed into the joint before the capsulotomy was repaired with #1 Vicryl. I then left my commercial lending assistant close the subcutaneous tissue and skin with 2-0 Vicryl and Monocryl. Dermabond was used on the skin. The drapes were then removed and she was taken to recovery room under the care of anesthesia.
[2016-10-14] MEDS ORDERED: ROPIVACAINE 0.5% (5mg/ml) 30ml INJ ONE (09:12)
[2016-10-14] MEDS ORDERED: VANCOMYCIN 1,000 MG INJECTION IAR ONE (09:32)
--- NOTE | 2016-10-14 10:00 | Anesthesia Procedure Note ---
Peripheral Nerve Blockade - Procedure Physician: Dk Navarro MD Date: 10/14/16 Surgical Procedure: right TKA Discussion: Discussed risks/options/alternatives of anesthesia and questions answered. Patient consents. Nursing pain assessment noted. Block Start: 09:47 Block Stop: 09:50 Blocked Employed: Adductor Canal Indication: Post-Operative Pain Approach: Right Side Confirmed Position: Supine Patient: Consent, Risks/Benefits Discussed, Informed, Post Block Act. Discussed IV Sedation: No (spinal still active) Initial Vital Signs: Temperature 98.0 F 10/14/16 05:48 Temperature Source Oral 10/14/16 05:48 Pulse Rate 77 10/14/16 05:48 Respiratory Rate 15 10/14/16 05:48 Blood Pressure 155/92 H 10/14/16 05:48 Blood Pressure Mean 113 10/14/16 05:48 Blood Pressure Position Sitting 10/14/16 05:48 Pulse Oximetry 97 10/14/16 05:48 Oxygen Delivery Method 10/14/16 05:48 Post Vital Signs: Temperature 98.0 F 10/14/16 05:48 Pulse Rate 75 10/14/16 06:14 Respiratory Rate 15 10/14/16 05:48 Blood Pressure 155/92 H 10/14/16 05:48 Pulse Oximetry 97 10/14/16 05:48 Oxygen Delivery Method Room Air Ultrasound Used?: Yes - Injectate Ropivacaine (%): 0.5 Ropivacaine (mL): 25 Was Epi 1:200,000 Used?: No Injection: Injection made incrementally with constant monitoring and aspiration every 5ml. negative aspiration
--- NOTE | 2016-10-14 10:02 | Anesthesia Postoperative Note ---
- Date and Time Date: 10/14/16 Time: 10:01 - Status Patient Participated in Evaluation: Patient Participated in Person Vital Signs: Temperature 97.2 F 10/14/16 09:50 Pulse Rate 79 10/14/16 09:50 Respiratory Rate 12 10/14/16 09:50 Blood Pressure 136/95 H 10/14/16 09:50 Pulse Oximetry 97 10/14/16 09:50 Oxygen Delivery Method Room Air Respiratory Function: Airway Patent Cardiovascular Function: Regular Pulse EKG Rhythm: Normal Sinus Rhythm Mental Status: Alert and Oriented Pain Intensity: 0 Hydration: IV Infusing Complications During Recover: None Apparent Post Anesthesia Care Notes: spinal steadily decreasing- currently at L1. No complications - Follow-Up Instructions Instructions: Per Surgeon
[2016-10-14] MEDS: NS 1,000 ML IV SCH ×2 (10:27→23:49)
[2016-10-14 10:45] VITALS: BMI 23.6
--- NOTE | 2016-10-14 11:00 | XRay Report ---
Indication: postoperative image PROCEDURE: XR knee RT 2V: Encounter: Comparison: None Findings: Postoperative changes of right total knee replacement are seen. There is expected postoperative subcutaneous gas. No evidence of hardware failure or acute fracture. No retained radiopaque surgical instruments or sponges. Overlying material causing artifact. Impression: New right total knee prosthesis without evidence of immediate complication. .
[2016-10-14] MEDS: ACETAMINOPHEN 325 MG TABLET PO SCH ×4 (11:01→21:17)
[2016-10-14] MEDS: ASPIRIN *EC* 325 MG TABLET PO SCH ×2 (11:08→21:18)
[2016-10-14] MEDS: DOCUSATE SODIUM 100 MG CAPSULE PO SCH ×2 (11:08→21:18)
[2016-10-14] MEDS: NOZIN NASAL SWAB NAS SCH ×2 (13:08→21:17)
[2016-10-14] MEDS: CLINDAMYCIN PB 900 MG/50 ML BAG IV SCH ×2 (13:09→19:00)
[2016-10-14] MEDS ORDERED: SALINE FLUSH 10ml SYRINGE IVF PRN (13:24)
[2016-10-14] MEDS ORDERED: LOSARTAN 50 MG TABLET PO SCH (22:00)
[2016-10-14] MEDS ORDERED: SENNOSIDES 8.6 MG TABLET PO SCH (22:00)
[2016-10-15] MEDS: CLINDAMYCIN PB 900 MG/50 ML BAG IV SCH (01:24)
[2016-10-15] MEDS: NOZIN NASAL SWAB NAS SCH ×2 (06:21→13:13)
[2016-10-15] MEDS ORDERED: SENNOSIDES 8.6 MG TABLET PO PRN (07:08)
[2016-10-15 07:52] VITALS: RESP 16
[2016-10-15] MEDS: ACETAMINOPHEN 325 MG TABLET PO SCH ×3 (08:11→16:46)
[2016-10-15] MEDS: DOCUSATE SODIUM 100 MG CAPSULE PO SCH (08:11)
[2016-10-15] MEDS: ASPIRIN *EC* 325 MG TABLET PO SCH (08:11)
--- NOTE | 2016-10-15 08:20 | Orthopedic Progress Note ---
Date: Subjective/Severity of Illness: Domingo reports "no pain" this AM. He is very pleased and has no complaints. Denies CP, cough or SOA. He has been mobile with good tolerance. Orthopedic Objective PO Vital signs: Temperature 97.1 F 10/15/16 07:51 Pulse Rate 86 10/15/16 07:51 Respiratory Rate 16 10/15/16 07:51 Blood Pressure 144/83 H 10/15/16 08:15 Pulse Oximetry 98 10/15/16 07:51 Oxygen Delivery Method Room Air Height and Weight: Height 5 ft 9 in Weight 161 lb 6.054 oz Body Mass Index 23.6 - Constitutional General Appearance: Present: alert, no acute distress - Respiratory Exam Present: non-labored - Extremities Exam Extremities: Present: pulses intact, normal capillary refill. Absent: calf tenderness - Surgical Site Incision: Mepilex dressing intact, no drainage - Integumentary Exam Present: pink, warm, dry - Neurological Exam Present: no deficits - Psychiatric Exam Present: alert, normal affect - Labs Result Diagrams: 10/15/16 04:16 10/15/16 04:16 Abnormal lab results 10/15/16 10/15/16 Range/Units 04:16 04:16 RBC 3.27 L (4.50-5.90) M/MM3 Hgb 9.4 L (13.5-17.5) GM/DL Hct 28.9 L (41-53) % Chloride 108 H (98-107) MEQ/L Creatinine 0.7 L D (0.8-1.5) MG/DL Glucose 137 H (75-110) MG/DL H & H 10/15/16 Range/Units 04:16 Hgb 9.4 L (13.5-17.5) GM/DL Hct 28.9 L (41-53) % Orthopedic Assessment and Plan (1) Primary osteoarthritis of right knee Status: Acute Assessment and Plan: Current anti-coagulation protocol for VTE prophylaxis. SCD's. PT/OT services to improve independent function. Discharge Planning per Case Management. Hospital Course Summary Disclaimer: The visit summary below is not to be considered part of the above Progress Note.
[2016-10-15] MEDS: NS 1,000 ML IV SCH (08:39)
--- NOTE | 2016-10-15 11:10 | Discharge Summary ---
Orthopedic Discharge Info Date of admission: 10/14/16 05:34 Primary care physician: Tong Abreu MD Attending Physician: Dk Navarro MD Consults: 10/14/16 05:51 Consult to Anesthesiology [CONS] Routine Consulting Provider: CECILIO Stephens Reason For Exam: Preoperative Assessment 10/14/16 07:13 Case Management Consult [CONS] Routine Reason For Exam: Discharge Planning DME-Walker [CONS] Routine Height: 5 ft 9 in Weight: 158 lb 4.67 oz Comment: change dressing in 2 weeks Total Joint Outpatient Therapy [CONS] Routine Comment: change dressing in 2 weeks - Discharge Diagnosis (1) Primary osteoarthritis of right knee Status: Acute - Procedures Procedures: Procedures Replacement of Left Knee Joint with Synthetic Substitute, Cemented, Open Approach (07/27/16) - Laboratory Result Diagrams: 10/15/16 04:16 10/15/16 04:16 Laboratory: Abnormal lab results 10/15/16 10/15/16 Range/Units 04:16 04:16 RBC 3.27 L (4.50-5.90) M/MM3 Hgb 9.4 L (13.5-17.5) GM/DL Hct 28.9 L (41-53) % Chloride 108 H (98-107) MEQ/L Creatinine 0.7 L D (0.8-1.5) MG/DL Glucose 137 H (75-110) MG/DL H & H 10/15/16 Range/Units 04:16 Hgb 9.4 L (13.5-17.5) GM/DL Hct 28.9 L (41-53) % Orthopedic Discharge HPI - HPI Comments This patient was admitted for elective surgical tx of end stage degenerative joint disease that failed to respond to conservative treatment. Further details of this is found in the admission H&P. Orthopedic Hospital Course Comments: After appropriate preoperative clearance and signing of operative consent, the patient was given IV antibiotics, according to orthopedic protocol. The patient was taken to the operating room and underwent elective joint arthroplasty. Following surgery, antibiotics were discontinued less than 24 hours according to joint protocol. Appropriate anticoagulants were initiated and SCDs added for DVT prevention. The dressing was clean, dry, and intact. Pain control was obtained via multimodal approach. Bowel motivation addressed with scheduled and PRN medications. Early mobilization was initiated through PT services. Discharge arrangements made by a collaborative effort between the patient and Case Management. Follow-up is scheduled in 2-3 weeks. Discharge instructions given by orthopedic providers and nursing staff at discharge. Discharge condition was good. - Postoperative Anemia patient received IVF, labs monitored daily, no intervention required, HGB drop- acceptable Discharge Plan - Med Rec/Dispo Referrals/Follow Up: Dk Navarro MD [Physician] - 11/10/16 10:00 am Additional Instructions: [facility] AT THE [facility] ON 10/18/2016 AT 9:20AM FOR PHYSICAL THERAPY CINDI. PHONE [phone] Prescriptions: New Aspirin *EC* [Ecotrin] 325 mg PO BID #84 tablet Naproxen [Aleve] 440 mg PO BID PRN #84 tablet PRN Reason: Pain Tramadol [Ultram] 50 - 100 mg PO Q6H PRN #60 tablet PRN Reason: Pain Acetaminophen [Tylenol] 650 mg PO QID #100 tablet Continue Losartan Potassium 50 mg PO HS #0 Turmeric Root Extract [Turmeric] 500 mg PO DAILY Sour Farias Extract [Tart Farias Extract] 1,000 mg PO DAILY Polyethylene Glycol 3350 [Miralax] 17 g PO DAILY PRN #30 packet PRN Reason: CONSTIPATION glucosamine sulfate 500 mg tablet 500 mg PO BID Discontinued Aspirin [Aspirin EC] 325 mg PO HS Acetaminophen [Tylenol] 650 mg PO QID PRN PRN Reason: Pain - Disposition 01 Discharged Home, Self-Care
[2016-10-15 15:59] VITALS: BP 149/85; PULSE 95; TEMP 96.6; O2SAT 95
[2016-10-16] MEDS ORDERED: BISACODYL 10 MG SUPPOSITORY RECTALLY SCH (20:00)
== END 2016-10-15 17:25 | disposition home or self-care (01) | DRG 470 ==
LOC: SRG 05:34
PROVIDERS: ADMIT Orthopaedic Surgery; ATTEND Orthopaedic Surgery